=== PATIENT | female | born 1955 | race Caucasian/White ===

== ENCOUNTER 2025-05-10 09:24 | Outpatient (AMB) | payer MEDICARE, OTHER, SELFPAY ==
--- OUTSIDE RECORDS SUMMARY | 2025-01-09 06:00 | XMS_ITS ---
Author Organization [facility] [place] [place] Address [address] [place] [address] Care Team Providers Care Shower Screen Installer Name Role Phone Migration, Provider Unavailable Unavailable REASON FOR VISIT Follow-up Appt Encounters Encounter Location Date Provider Diagnosis [address] [address] 01/09/2025 Provider Migration Plan Of Treatment Next Appt Details Provider Name:Ritaher Garcia, 07/28/2025 10:15:00 AM, [address] [place] [address], [place] [address], [place], [address], [phone] Progress Notes * JEFFERSON CALDWELLRAHULOB:1955 (69 yo F)Acc No.[id number]:01/09/2025 Progress Notes Patient: SHEKHAR MCCABE Provider: Nato momin Migration :1955 A ge:69 Y S ex:Female Date:01/09/2025 Address: [address] [place], [place] Subjective: * Chief Complaints: * F ollow-up Appt * Ocular Surgical History: Objective: Vision Examination: * Electronic signature of Prov ider Migration on 05/10/2025 at 10:10 AM EDT Sign off status: Pending * Provider: Nato momin Migration Date: 0 01/09/2025 Generated for Merced bhatia/Roge/eTshanitasmitting on: 0 05/10/2025 10:10 AM EDT
--- OUTSIDE RECORDS SUMMARY | 2025-01-10 06:00 | XMS_ITS ---
Author Organization [facility] [place] Address [address] [place] [address] Care Team Providers Care Machine Chain Maker Name Role Phone Remy Mendiola Unavailable [phone] REASON FOR VISIT Follow-up Appt Encounters Encounter Location Date Provider Diagnosis [address] [place] [address] 01/10/2025 Remy Mendiola Plan Of Treatment Next Appt Details Provider Name:Rita Garcia, 07/28/2025 10:15:00 AM, [address] [facility], [address], [place], [address], [phone] Progress Notes * LAURA CALDWELLOB:1955 (69 yo F)Acc No.[id number]:01/10/2025 Progress Notes Patient: SHEKHAR MCCABE Provider: Naseem CABRERA :1955 A ge:69 Y S ex:Female Date:01/10/2025 [facility] Subjective: * Chief Complaints: * F ollow-up Appt * Ocular Surgical History: Objective: Vision Examination: * Electronic signature of Yosi Mendiola PA-C on 05/10/2025 at 10:10 AM EDT Sign off status: Pending * Provider: Naseem CABRERA Date: 01/10/2025 Generated for Printi ng/Faxing/eTransmitting on: 0 05/10/2025 10:10 AM EDT
--- OUTSIDE RECORDS SUMMARY | 2025-02-15 06:00 | XMS_ITS ---
Author Organization [facility] [place] Address [address] [place] [address] Care Team Providers Care Mill Operator Helper Name Role Phone Remy Mendiola Unavailable [phone] Allergies Allergen (clinical drug ingredient) Drug/Non Drug [...] a day Active Betamethasone 0.05% lotion Act ricki Aspirin 81 81 MG Tablet Delayed Release 1 tablet Orally Once a day Active SUMAtriptan Succinate 50 MG Tablet 1 tablet as needed, may take second dose at least 2 hours after first dose up to 4 tablets per day as needed Orally Once a day Active Encounters Encounter Location Date Provider Diagnosis [facility], [address] [place] [address] 02/15/2025 Remy Mendiola Assessments Encounter Date Diagnosis (ICD Code) Assessment Notes Treatment Notes Treatment Clinical Notes Section Notes 02/15/2025 Pt sees neurology next month. Labs-CBC, CMP/GFR/PSH/T4 /LIPID/URINE/M AG/CRP/B12/VIT D TRIAMVINOLONE CREAM Plan Of Treatment Next Appt Details Follow Up: 2 Weeks, Reason: Provider Name:Rita Garcia, 07/28/2025 10:15:00 AM, [address] [place] [address], Suite [facility], [place], [address], [phone] Progress Notes * LAURA CALDWELLOB:1955 (69 yo F)Acc No.[id number]:02/15/2025 Progress Notes Patient: SHEKHAR MCCABE Provider: Naseem CABRERA :1955 A ge:69 Y S ex:Female Date:02/15/2025 Address: [address] [facility] Subjective: * Chief Complaints: * F ollow-up [...] CABRERA Date: 0 02/15/2025 Generated for Merced bhatia/Roge/eTransmitting on: 0 05/10/2025 10:10 AM EDT
--- OUTSIDE RECORDS SUMMARY | 2025-03-01 10:30 | XMS_ITS ---
Author Organization [facility] [place] Address [address] [place] [address] Care Team Providers Care Social Work Therapist Name Role Phone Remy Mendiola Unavailable [phone] Allergies Allergen (clinical drug ingredient) Drug/Non Drug [...] Location Date Provider Diagnosis [facility] [place] [address] [facility] [address] [place] [address] 03/01/2025 Remy Mendiola Plan Of Treatment Next Appt Details Follow Up: 2 Months, Reason: Provider Name:Rita Garcia, 07/28/2025 10:15:00 AM, [address] [facility], [address], [place], [address], [phone] Progress Notes * JEFFERSON CALDWELLRAHULOB:1955 (69 yo F)Acc No.[id number]:03/01/2025 Progress Notes Patient: SHEKHAR MCCABE Provider: Naseem CABRERA :1955 A ge:69 Y S ex:Female Date:03/01/2025 Address:[address] [place], [place] [id number] Subjective: * Chief Complaints: * F ollow-up [...] 0 03/01/2025 Generated for Merced bhatia/Roge/Samir on: 0 05/10/2025 10:10 AM EDT
--- OUTSIDE RECORDS SUMMARY | 2025-04-27 06:45 | XMS_ITS ---
Author Organization [facility] [place] Address [address] [place] [address] Care Team Providers Care Manager Commercial [employer] Name Role Phone Rita Garcia Unavailable [phone] Allergies Allergen (clinical drug ingredient) Drug/Non Drug [...] 04/27/2025 Encounters Encounter Location Date Provider Diagnosis [facility], [place] [address] [place] [address] 04/27/2025 Rita Garcia Plan Of Treatment Next Appt Details Provider Name:Rita Garcia, 07/28/2025 10:15:00 AM, [address], [place], [address], [phone] History and Physical Notes * HPI (History [...] neurologist recommendations. Progress Notes * LAURA CALDWELLOB:1955 (69 yo F)Acc No.[id number]:04/27/2025 Progress Notes Patient: SHEKHAR MCCABE Provider: Stephania Garcia :1955 A ge:69 Y S ex:Female Date:04/27/2025 Address:[id number] Subjective: * Chief Complaints: * 2 month [...] * Electronic signature of Genaro Garcia on 05/10/2025 at 10:10 AM EDT Sign off status: Pending * Provider: Stephania Garcia Date: 0 04/27/2025 Generated for Merced bhatia/Roge/Samir on: 0 05/10/2025 10:10 AM EDT
--- NOTE | 2025-05-10 09:29 | A.OFFVIS_ITS ---
Intake Visit Reasons: 3 mnts f/u appt Allergies sulfur dioxide Allergy (Unknown, Verified 05/03/25 07:53) Unknown HPI Comments Details: The patient is a 69-year-old female presenting with chronic tension-type headaches and associated persistent lightheadedness. The patient described the lightheadedness as a constant sensation, sometimes fading into the background. The symptoms persisted after a stroke in her past medical history. During a recent exacerbation, she sought emergency care where a CT scan ruled out acute issues. After the emergency visit, she received meclizine without notable relief. An ENT specialist later ruled out an inner ear cause. Her management of anxiety through sertraline was discussed as a potential cause of the lightheadedness. No significant changes in her condition were linked to stress following her correction, although the medication regimen had varying impacts. [facility] Medical History (Updated 05/10/25 @ 09:31 by Brigitte Gibson MD) Cerebral microvascular disease Chronic tension headache Review of Systems Const Details: - Neurological: Reports persistent lightheadedness, denies dizziness. - Psychological: Reports anxiety stabilized, partially due to correction. - Medications: Reports taking sertraline. Physical Exam Neuro Other: Mental Status: Alert and oriented to person, place, and time. Normal attention. Normal spontan eous speech, fluency, and comprehension. No obvious issues with mood and memory. Affect is appropriate. Cranial Nerves: CN II: Visual andrew full to confrontation, visual acuity intact. CN III, IV, : Pupils equal, round, reactive to light and accommodation. Extraocular movements are normal. CN V: Facial sensation is normal. CN VII: Facial movements symmetrical. CN VIII: Hearing intact to bedside conversation is normal. CN IX, X: Palate elevates symmetrically. CN XI: Shoulder shrug and head turn symmetrical. CN XII: Tongue midline without atrophy or fasciculations. Extrapyramidal: Full facial expressions and blinking. No rigidity. Movements are appropriate with no tremor or abnormality. Speech: Normal; no dysarthria or tremor. Assessment & Plan Assessment & Plan (1) Chronic tension headache: Code(s): G44.229 - Chronic tension-type headache, not intractable Category: Medical Qualifiers: Intractability: not intractable Qualified Code(s): G44.229 - Chronic tension-type headache, not intractable Plan: During the consultation, I discussed with the patient her persistent lightheadedness, exploring the history and relationship of this symptom with her previous stroke, medication usage, and potential current treatment side effects. We reviewed the possible role of sertraline and agreed to reduce the dosage to assess the impact on her symptoms. It was explained that should her symptoms worsen, resuming the prior dosage would be advisable with further evaluation. (2) Cerebral microvascular disease: Comment: MRI brain WWO at [facility] in 2019: mild to mod MVD. Code(s): I67.89 - Other cerebrovascular disease Category: Medical Plan Impression: a: Chrnic tension type headache, not better b: Constant feeling of lightheadedness c: Cerebral microvascular disease Rec: a: Try decreasing sertraline dose to 25mg daily to see if that would help with lightheadedness feeling b: Baby aspirin daily Coding Level of Care Code Est Pt Level 4 (41584) Diagnoses Chronic tension-type headache, not intractable G44.229 Intractability: not intractable Cerebral microvascular disease I67.89
--- OUTSIDE RECORDS SUMMARY | 2025-05-10 10:10 | XMS_ITS | Encounter Summary ---
Author Organization [facility] Address [address] [place] [address] Care Team Providers Care Corporation Secretary Name Role Phone Remy Mendiola Primary Care Provider [phone] Encounter Details Date Type Department Care Team (Late st Contact Info) Description 07/11/2024 Lab Requisition [facility] - Main Lab [address] [facility] [place] [address] Luis Alberto Phillips MD [address] [facility] [address] [place], [place] [id number] Vitamin D deficiency, unspecified Social History Tobacco Use Types Packs/Day Years Used Date Smoking Tobacco: Never Assessed Comments Unknown Sex and Gender Information Value Date Recorded Sex Assigned at Not on file Legal Sex Female 2:14 PM EST Gender Identity Not on file Sexual Orientation Not on file documented as of this encounter Plan of Treatment Not on file documented as of this encounter Procedures Procedure Name Priority Date/Time Associated Diagnosis Comments VITAMIN D 25 HYDROXY Routine 07/11/2024 12:00 AM EST Vitamin D deficiency, unspecified documented in this encounter Results * Vitamin D 25 hydroxy (07/11/2024 12:00 AM EST) Vit D, 25-Hydroxy 34.1 30.0 - 80.0 ng/mL LAB CHEMISTRY METHOD 07/11/2024 6:59 PM EST [facility] Blood Venous blood specimen / Unknown 07/11/2024 07/11/2024 5:46 PM EST us Luis Alberto Phillips MD LAB BLOOD ORDERABLES Final Result [facility] [address] [place] [address], documented in this encounter Visit Diagnoses Diagnosis Vitamin D deficiency, unspecified documented in this encounter Care Teams Corporation Secretary Relationship Specialty Start Date End Date Remy Mendiola PA [address] [address] PCP - General Primary Care 02/15/25 documented as of this encounter
--- OUTSIDE RECORDS SUMMARY | 2025-05-10 10:10 | XMS_ITS ---
Author Name [facility] Organization Unknown Encounters Encounter Type Encounter Reason Primary Diagnosis Location Date Ambulatory [facility] 01/03/2025 Ambulatory [facility] 07/05/2024 Care Team Organization Name Specialty Phone Email Start Date End Da te [facility] 2024
--- OUTSIDE RECORDS SUMMARY | 2025-05-10 10:10 | XMS_ITS | Patient Health Record ---
Author Organization [facility] [place] Address [address] [place] [address] Care Team Providers Care Log Driver Name Role Phone Remy Mendiola Unavailable [phone] Migration, Provider Unavailable Unavailable Rita Garcia Unavailable [phone] Allergies Allergen (clinical drug ingredient) Drug/Non Drug Allergy documented on EMR Reaction Allergy Type Onset Date Status Substance with sulfonamide structure and antibacterial mechanism of action (substance) Sulfa Antibiotics Unknown Drug Allergy Active Reason For Referral No Information Medications Medication SIG (Take, Route, Frequency, Duration) [...] Den ies Do you drink alcohol? No Section Notes: Patient indicates no alcohol , tobacco or drug use. Vital Signs Heart Rate 62 /min 04/27/2025 Temperature 98.6 degrees Fahrenheit 03/01/2025 Height-cm 180.34 cm 04/27/2025 Oximetry 97 % 04/27/2025 Blood pressure diastolic 71 mm Hg 04/27/2025 Weight-kg 92.53 kg 04/27/2025 Height 71 in 04/27/2025 Blood pressure systolic 116 mm Hg 04/27/2025 Weight 204 lbs 04/27/2025 BMI 28.45 kg/m2 04/27/2025 Encounters Encounter Location Date Provider Diagnosis [facility] [place] [address] [place] [address] 05/17/2024 Provider Migration [facility] [place] [address] [place] [address] 06/13/2024 Provider Migration [facility] [place] [address] [place] [phone] 07/11/2024 Provider Migration [facility] [place] [address] [place] [address] 01/09/2025 Provider Migration [facility] [place] [address] [place] [phone] 01/10/2025 Remy Mendiola [facility] [place] [address] [place] [phone] 02/15/2025 Remy Mendiola [facility] [place] [address] [place] [address] 03/01/2025 Remy Mendiola [facility] [place] [address] [place] [phone] 04/27/2025 Rita Garcia Assessments Encounter Date Diagnosis (ICD Code) Assessment Notes Treatment Notes Treatment Clinical Notes Section Notes 02/15/2025 Pt sees neurology next month. Labs-CBC, CMP/GFR/PSH/T4 /LIPID/URINE/M AG/CRP/B12/VIT D TRIAMVINOLONE CREAM Plan Of Treatment Next Appt Details Provider Name:Rita Garcia, 07/28/2025 10:15:00 AM, [address] [facility], [address] [facility], [place], [address], [phone] Insurance Providers Payer Name Payer Address Payer Phone Subscriber Number Group Number Insured Name Patient Relationship to Insured Coverage Start Date Coverage End Date [employer] [address] [place] [phone] [id number] SHEKHAR CALDWELL Self - patient is the insured [facility] [address] [place] [address] [id number] SHEKHAR CALDWELL Self - patient is the insured Medical (General) History Surgical History Surgery Date(Month/Year) no surgeries
--- OUTSIDE RECORDS SUMMARY | 2025-05-10 10:10 | XMS_ITS | Clinical Summary ---
Author Organization [address] Address [address] [place] [address] Phone Care Team Providers Care Ships Equipment Engineer Name Role Phone Remy Mendiola Primary Care Provider [phone] Social History Tobacco Use Types Packs/Day Years Used Date Smoking Tobacco: Never Assessed Comments Unknown Sex and Gender Information Value Date Recorded Sex Assigned at Not on file Legal Sex Female 2:14 PM EST Gender Identity Not on file Sexual Orientation Not on file Plan of Treatment Health Maintenance Due Date Last Done Comments Breast Cancer Screening 1955 DTaP,Tdap,and Td Vaccines (1 - Tdap) 1974 Pneumococcal Vaccine: 50+ Years (1 of 1 - PCV) 2005 Zoster Vaccines (1 of 2) 2005 Colorectal Cancer Screening: Colonoscopy 07/31/2024 Falls Risk Assessment 07/31/2024 Hepatitis C Screening 07/31/2024 Medicare Annual Wellness Visit 07/31/2024 Osteoporosis Screening (Bone Density Screening) 07/31/2024 Social Influencers of Health Screening 07/31/2024 Depression Screening 09/07/2024 COVID-19 Vaccine ( season) 2024 06/12/2024, 09/15/2023, 08/21/2022, Additional history exists Influenza Vaccine (#1) 2025 , 08/13/2023, 08/07/2022, Additional history exists Cholesterol Screening (Lipid Panel) 02/15/2030 02/15/2025 RSV Immunization Adult Patients (1 - 1-dose 75+ series) 2030 HIB Vaccines Aged Out No longer eligi ble based on patient's age to complete this topic HPV Vaccines Aged Out No longer eligi ble based on patient's age to complete this topic Hepatitis A Vaccines Aged Out No long er eligible based on patient's age to complete this topic Hepatitis B Vaccines Aged Out No long er eligible based on patient's age to complete this topic IPV Vaccines Aged Out No longer eligi ble based on patient's age to complete this topic MMR Vaccines Aged Out No longer eligi ble based on patient's age to complete this topic Meningococcal ACWY Vaccine Aged Out N o longer eligible based on patient's age to complete this topic Meningococcal B Vaccine Aged Out No l onger eligible based on patient's age to complete this topic RSV Immunization Patients Under 20 months Aged Out No longer eligible based on patient's age to complete this topic Varicella Vaccines Aged Out No longer eligible based on patient's age to complete this topic Procedures Procedure Name Priority Date/Time Associated Diagnosis Comments CARLOS URINE CULTURE TUBE Routine 02/15/2025 11:02 AM EDT Screening, heart disease, ischemic Screening for diabetes mellitus Encounter for long-term (current) use of medications Screening for malnutrition URINALYSIS WITH REFLEX MICROSCOPIC AND CULTURE Routine 02/15/2025 11:02 AM EDT Screening, heart disease, ischemic Screening for diabetes mellitus Encounter for long-term (current) use of medications Screening for malnutrition URINALYSIS WITH REFLEX MICROSCOPIC AND CULTURE Routine 02/15/2025 11:02 AM EDT Screening, heart disease, ischemic Screening for diabetes mellitus Encounter for long-term (current) use of medications Screening for malnutrition CULTURE URINE Routine 02/15/2025 11:02 AM EDT Screening, heart disease, ischemic Screening for diabetes mellitus Encounter for long-term (current) use of medications Screening for malnutrition CBC WITH AUTO DIFFERENTIAL Routine 02/15/2025 10:49 AM EDT Screening, heart disease, ischemic Screening for diabetes mellitus Encounter for long-term (current) use of medications Screening for malnutrition VITAMIN D 25 HYDROXY Routine 02/15/2025 10:49 AM EDT Screening, heart disease, ischemic Screening for diabetes mellitus Encounter for long-term (current) use of medications Screening for malnutrition THYROID STIMULATING HORMONE Routine 02/15/2025 10:49 AM EDT Screening, heart disease, ischemic Screening for diabetes mellitus Encounter for long-term (current) use of medications Screening for malnutrition MAGNESIUM Routine 02/15/2025 10:49 AM EDT Screening, heart disease, ischemic Screening for diabetes mellitus Encounter for long-term (current) use of medications Screening for malnutrition THYROXINE FREE Routine 02/15/2025 10:49 AM EDT Screening, heart disease, ischemic Screening for diabetes mellitus Encounter for long-term (current) use of medications Screening for malnutrition C-REACTIVE PROTEIN Routine 02/15/2025 10 :49 AM EDT Screening, heart disease, ischemic Screening for diabetes mellitus Encounter for long-term (current) use of medications Screening for malnutrition CBC AND DIFFERENTIAL Routine 02/15/2025 10:49 AM EDT Screening, heart disease, ischemic Screening for diabetes mellitus Encounter for long-term (current) use of medications Screening for malnutrition VITAMIN B12 Routine 02/15/2025 10:49 AM EDT Screening, heart disease, ischemic Screening for diabetes mellitus Encounter for long-term (current) use of medications Screening for malnutrition LIPID PANEL WITH REFLEX TO DIRECT LDL Routine 02/15/2025 10:49 AM EDT Screening, heart disease, ischemic Screening for diabetes mellitus Encounter for long-term (current) use of medications Screening for malnutrition COMPREHENSIVE METABOLIC PANEL Routine 02/15/2025 10:49 AM EDT Screening, heart disease, ischemic Screening for diabetes mellitus Encounter for long-term (current) use of medications Screening for malnutrition from Last 3 Months Results * (ABNORMAL) Urinalysis with reflex microscopic and culture (02/15/2025 11:02 AM EDT) [facility] Specific Ona Urine 1.025 1.003 - 1.030 LAB URINALYSIS - AUTOMATED METHOD 02/15/2025 12:55 PM EDT [facility] pH, Urine 5.0 5.0 - 8.0 pH LAB URINALYSIS - AUTOMATED METHOD 02/15/2025 12:55 PM [facility] Leukocytes, Urine Trace(A) Negative LAB URINALYSIS - AUTOMATED METHOD 02/15/2025 12:55 PM [facility] Nitrite, Urine Negative Negative LAB URINALYSIS - AUTOMATED METHOD 02/15/2025 12:55 PM [facility] Protein, Urine Negative <=Trace mg/dL LAB URINALYSIS - AUTOMATED METHOD 02/15/2025 12:55 PM [facility] Glucose, Urine Negative Negative mg/dL LAB URINALYSIS - AUTOMATED METHOD 02/15/2025 12:55 PM [facility] Ketones, Urine Trace(A) Negative mg/dL LAB URINALYSIS - AUTOMATED METHOD 02/15/2025 12:55 PM [facility] Urobilinogen, Urine 0.2 0.2 - 1.0 mg/dL LAB URINALYSIS - AUTOMATED METHOD 02/15/2025 12:55 PM [facility] Bilirubin, Urine Negative Negative LAB URINALYSIS - AUTOMATED METHOD 02/15/2025 12:55 PM [facility] Blood, Urine Negative Negative LAB URINALYSIS - AUTOMATED METHOD 02/15/2025 12:55 PM [facility] RBC, Urine 5.0(H) 0 - 4 /HPF LAB URINALYSIS - AUTOMATED METHOD 02/15/2025 12:55 PM [facility] WBC, Urine 3.2 0 - 4 /HPF LAB URINALYSIS - AUTOMATED METHOD 02/15/2025 12:55 PM [facility] Squamous Epithelial, Urine >100(H) 0 - 60 /LPF LAB URINALYSIS - AUTOMATED METHOD 02/15/2025 12:55 PM [facility] Bacteria, Urine Negative Negative /HPF LAB URINALYSIS - AUTOMATED METHOD 02/15/2025 12:55 PM EDT [facility] Hyaline Casts, Urine 2.0 0 - 3 /LPF LAB URINALYSIS - AUTOMATED METHOD 02/15/2025 12:55 PM EDT [facility] Urine Urine specimen obtained by clean catch procedure / Unknown Non-blood Collection / Unknown 02/15/2025 11:02 AM EDT 02/15/2025 12:13 PM EDT Remy CABRERA LAB URINE ORDERABLES Final Res ult Performing Organization Address [facility]/ZIP Co de Phone Number [facility] [address] [place] [address], [place] [phone] * Carlos urine culture tube (02/15/2025 11:02 AM EDT) Extra Tube Hold for add-ons. 02/15/2025 2:01 PM EDT [facility] Comment:Auto resulted. Urine Urine specimen obtained by clean catch procedure / Unknown Non-blood Collection / Unknown 02/15/2025 11:02 AM EDT 02/15/2025 12:13 PM EDT Remy CABRERA LAB URINE ORDERABLES Final Res ult Performing Organization Address City/[facility]/ZIP Co de Phone Number [facility] [address] [place] [address], [place] [phone] * Culture urine (02/15/2025 11:02 AM EDT) Culture, Urine 10,000-49,000 CFU/mL Mixed urogenital negrito, no uropathogens present. Suggest repeat specimen if clinically indicated. 02/16/2025 10:26 AM EDT [facility] Urine Urine specimen obtained by clean catch procedure / Unknown Non-blood Collection / Unknown 02/15/2025 11:02 AM EDT 02/15/2025 12:55 PM EDT Remy CABRERA LAB MICROBIOLOGY - GENERAL ORD ERABLES Final Result [facility] [address] [place] [address], [place] [phone] * (ABNORMAL) Lipid panel with reflex to direct LDL (02/15/2025 10:49 AM EDT) Cholesterol 204(H) 0 - 200 mg/dL LAB CHEMISTRY METHOD 02/15/2025 1:35 PM EDT [facility] Triglycerides 138 0 - 150 mg/dL LAB CHEMISTRY METHOD 02/15/2025 1:35 PM EDT [facility] HDL 66 >=40 mg/dL LAB CHEMISTRY METHOD 02/15/2025 1:35 PM EDT [facility] LDL Calculated 110(H) 0 - 100 mg/dL LAB CHEMISTRY METHOD 02/15/2025 1:35 PM EDT [facility] VLDL Cholesterol Gareth 27.6 mg/dL LAB CHEMISTRY METHOD 02/15/2025 1:35 PM EDT [facility] Non HDL Chol. (LDL+VLDL) 138 <145 mg/dL LAB CHEMISTRY METHOD 02/15/2025 1:35 PM EDT [facility] Chol/HDL Ratio 3.1 0.0 - 4.4 LAB CHEMISTRY METHOD 02/15/2025 1:35 PM EDT [facility] Blood Venous blood specimen / Unknown Venipuncture / Unknown 02/15/2025 10:49 AM EDT 02/15/2025 12:19 PM EDT Remy CABRERA LAB BLOOD ORDERABLES Final Res ult [facility] [address] [place] [address], [place] [phone] * (ABNORMAL) CBC auto differential (02/15/2025 10:49 AM EDT) [facility] WBC 7.3 4.8 - 10.8 K/mcL LAB HEMETOLOGY METHOD 02/15/2025 12:48 PM EDT [facility] RBC 4.70 3.80 - 4.80 M/mcL LAB HEMETOLOGY METHOD 02/15/2025 12:48 PM EDT [facility] Hemoglobin 13.3 11.5 - 16.0 g/dL LAB HEMETOLOGY METHOD 02/15/2025 12:48 PM EDT [facility] Hematocrit 41.7 35.0 - 47.0 % LAB HEMETOLOGY METHOD 02/15/2025 12:48 [facility] MCV 88.7 79.0 - 98.0 FL LAB HEMETOLOGY METHOD 02/15/2025 12:48 PM [facility] MCH 28.3 27.0 - 32.0 pcg LAB HEMETOLOGY METHOD 02/15/2025 12:48 PM [facility] MCHC 31.9(L) 32.0 - 37.0 g/dL LAB HEMETOLOGY METHOD 02/15/2025 12:48 PM [facility] RDW 13.0 11.0 - 15.0 % LAB HEMETOLOGY METHOD 02/15/2025 12:48 PM EDT [facility] Platelets 265 130 - 400 K/mcL LAB HEMETOLOGY METHOD 02/15/2025 12:48 PM EDT [facility] MPV 9.8 7.0 - 11.0 FL LAB HEMETOLOGY METHOD 02/15/2025 12:48 PM EDT [facility] NRBC 0.0 <1.0 % LAB HEMETOLOGY METHOD 02/15/2025 12:48 PM [facility] NRBC Absolute 0.00 <0.10 K/mcL LAB HEMETOLOGY METHOD 02/15/2025 12:48 PM [facility] Neutrophils Relative 70.4 % LAB HEMETOLOGY METHOD 02/15/2025 12:48 PM [facility] Lymphocytes Relative 14.7 % LAB HEMETOLOGY METHOD 02/15/2025 12:48 PM [facility] Monocytes Relative 9.3 % LAB HEMETOLOGY METHOD 02/15/2025 12:48 PM [facility] Eosinophils Relative 4.0 % LAB HEMETOLOGY METHOD 02/15/2025 12:48 PM [facility] Basophils Relative 1.2 % LAB HEMETOLOGY METHOD 02/15/2025 12:48 PM [facility] Immature Granulocytes Relative 0.4 % LAB HEMETOLOGY METHOD 02/15/2025 12:48 PM [facility] Neutrophils Absolute 5.16 1.50 - 7.00 K/mcL LAB HEMETOLOGY METHOD 02/15/2025 12:48 PM [facility] Lymphocytes Absolute 1.08 1.00 - 5.00 K/mcL LAB HEMETOLOGY METHOD 02/15/2025 12:48 PM [facility] Monocytes Absolute 0.68 0.20 - 1.00 K/mcL LAB HEMETOLOGY METHOD 02/15/2025 12:48 PM [facility] Eosinophils Absolute 0.29 0.00 - 0.50 K/mcL LAB HEMETOLOGY METHOD 02/15/2025 12:48 PM [facility] Basophils Absolute 0.09 0.00 - 0.20 K/mcL LAB HEMETOLOGY METHOD 02/15/2025 12:48 PM [facility] Immature Granulocytes Absolute 0.03 0.00 - 0.03 K/mcL LAB HEMETOLOGY METHOD 02/15/2025 12:48 PM [facility] Blood Venous blood specimen / Unknown Venipuncture / Unknown 02/15/2025 10:49 AM EDT 02/15/2025 12:20 PM EDT Remy CABRERA LAB BLOOD ORDERABLES Final Res ult Performing Organization Address [facility]/ZIP Co de Phone Number [facility] [address] [place] [address], [place] [phone] * Vitamin D 25 hydroxy (02/15/2025 10:49 AM EDT) Vit D, 25-Hydroxy 35.5 30.0 - 80.0 ng/mL LAB CHEMISTRY METHOD 02/15/2025 2:46 PM EDT [facility] Blood Venous blood specimen / Unknown Venipuncture / Unknown 02/15/2025 10:49 AM EDT 02/15/2025 12:19 PM EDT Remy CABRERA LAB BLOOD ORDERABLES Final Res ult Performing Organization Address [facility] de Phone Number [facility] [address] [place], [place] [address], [place] [phone] * C-reactive protein (02/15/2025 10:49 AM EDT) [facility] C-Reactive Protein <0.29 <=0.50 mg/dL LAB CHEMISTRY METHOD 02/15/2025 1:56 PM EDT [facility] Blood Venous blood specimen / Unknown Venipuncture / Unknown 02/15/2025 10:49 AM EDT 02/15/2025 12:19 PM EDT Remy CABRERA LAB BLOOD ORDERABLES Final Res ult Performing Organization Address City/[facility]/ZIP Co de Phone Number [facility] [address] [place] [address], [place] [phone] * Thyroid stimulating hormone (02/15/2025 10:49 AM EDT) TSH 2.96 0.40 - 4.00 mcIU/mL LAB CHEMISTRY METHOD 02/15/2025 2:46 PM EDT [facility] Blood Venous blood specimen / Unknown Venipuncture / Unknown 02/15/2025 10:49 AM EDT 02/15/2025 12:19 PM EDT Remy CABRERA LAB BLOOD ORDERABLES Final Res ult [facility] [address] [place] [address], [place] [phone] * Thyroxine free (02/15/2025 10:49 AM EDT) Free T4 0.99 0.70 - 1.80 ng/dL LAB CHEMISTRY METHOD 02/15/2025 2:46 PM EDT [facility] Blood Venous blood specimen / Unknown Venipuncture / Unknown 02/15/2025 10:49 AM EDT 02/15/2025 12:19 PM EDT us Remy CABRERA LAB BLOOD ORDERABLES Final Res ult [facility] [address] [place] [address], [place] [phone] * Magnesium (02/15/2025 10:49 AM EDT) Magnesium 2.3 1.9 - 2.6 mg/dL LAB CHEMISTRY METHOD 02/15/2025 1:35 PM EDT [facility] Blood Venous blood specimen / Unknown Venipuncture / Unknown 02/15/2025 10:49 AM EDT 02/15/2025 12:19 PM EDT Remy CABRERA LAB BLOOD ORDERABLES Final Res ult Performing Organization Address City/[facility]/ZIP Co de Phone Number [facility] [address] [place] [address], [place] [phone] * Vitamin B12 (02/15/2025 10:49 AM EDT) [facility] Vitamin B-12 348 250 - 900 pcg/mL LAB CHEMISTRY METHOD 02/15/2025 1:56 PM EDT [facility] Blood Venous blood specimen / Unknown Venipuncture / Unknown 02/15/2025 10:49 AM EDT 02/15/2025 12:19 PM EDT Remy CABRERA LAB BLOOD ORDERABLES Final Res ult Performing Organization Address [facility]/ZIP Co de Phone Number [facility] [address] [place] [address], [place] [phone] * Comprehensive metabolic panel (02/15/2025 10:49 AM EDT) [facility] Sodium 141 133 - 145 mmol/L LAB CHEMISTRY METHOD 02/15/2025 1:35 PM T [facility] Potassium 4.1 3.5 - 5.5 mmol/L LAB CHEMISTRY METHOD 02/15/2025 1:35 PM EDT [facility] Chloride 106 96 - 110 mmol/L LAB CHEMISTRY METHOD 02/15/2025 1:35 PM EDT [facility] CO2 29 21 - 32 mmol/L LAB CHEMISTRY METHOD 02/15/2025 1:35 PM EDT [facility] Anion Gap 6 3 - 11 LAB CHEMISTRY METHOD 02/15/2025 1:35 PM [facility] Glucose 79 70 - 100 mg/dL LAB CHEMISTRY METHOD 02/15/2025 1:35 PM [facility] BUN 20 5 - 25 mg/dL LAB CHEMISTRY METHOD 02/15/2025 1:35 PM [facility] Creatinine 0.55 0.50 - 1.10 mg/dL LAB CHEMISTRY METHOD 02/15/2025 1:35 PM [facility] eGFR 99 >=60 mL/min/1. 73m2 LAB CHEMISTRY METHOD 02/15/2025 1:35 PM [facility] Comment:Calculation based on the Chronic Kidney Disease Epidemiology Collaboration (CKD-EPI) equation refit without adjustment for race. BUN/Creatinine Ratio 36.4 LAB CHEMISTRY METHOD 02/15/2025 1:35 PM [facility] Calcium 8.7 8.5 - 10.5 mg/dL LAB CHEMISTRY METHOD 02/15/2025 1:35 PM [facility] AST (SGOT) 17 10 - 42 unit/L LAB CHEMISTRY METHOD 02/15/2025 1:35 PM [facility] ALT (SGPT) 17 10 - 60 unit/L LAB CHEMISTRY METHOD 02/15/2025 1:35 PM [facility] Alkaline Phosphatase 72 42 - 121 unit/L LAB CHEMISTRY METHOD 02/15/2025 1:35 PM [facility] Total Protein 6.4 6.0 - 8.0 g/dL LAB CHEMISTRY METHOD 02/15/2025 1:35 PM [facility] Albumin 3.3 3.2 - 5.0 g/dL LAB CHEMISTRY METHOD 02/15/2025 1:35 PM [facility] Total Bilirubin 0.4 0.0 - 1.4 mg/dL LAB CHEMISTRY METHOD 02/15/2025 1:35 PM [facility] Blood Venous blood specimen / Unknown Venipuncture / Unknown 02/15/2025 10:49 AM EDT 02/15/2025 12:19 PM EDT us Remy CABRERA LAB BLOOD ORDERABLES Final Res ult [facility] [address] [place] [address], from Last 3 Months Insurance MEDICARE [facility] Care Teams Ships Equipment Engineer Relationship Specialty Start Date End Date Remy Mendiola PA [address] [place] [id number] PCP - General Primary Care 02/15/25
== END 2025-05-10 09:40 | disposition home or self-care (01) ==
LOC: HO.HSM 09:24
PROVIDERS: PCP Internal Medicine; Visit Provider Psychiatry & Neurology Neurology
DX: G44.229 Chronic tension-type headache, not intractable (principal); I67.89 Other cerebrovascular disease
CPT/HCPCS: 99214

== ENCOUNTER → 2025-05-10 09:24 | Outpatient (BNVA) | payer MEDICARE, OTHER, SELFPAY | PROVIDERS: PCP Internal Medicine; Visit Provider Psychiatry & Neurology Neurology | DX: G44.229 Chronic tension-type headache, not intractable (principal); I67.89 Other cerebrovascular disease | CPT/HCPCS: 99212 ==

== ENCOUNTER 2025-07-18 11:14 | Outpatient (AMB) | payer MEDICARE, OTHER, SELFPAY ==
--- OUTSIDE RECORDS SUMMARY | 2024-05-17 05:00 | XMS_ITS ---
Author Organization [facility] [place] [facility] [place] Address [address] [place] [address] Care Team Providers Care Backup Operator Name Role Phone Migration, Provider Unavailable Unavailable REASON FOR VISIT CPX Encounters Encounter Location Date Provider Diagnosis [facility], [address] [address] 05/17/2024 Provider Migration Plan Of Treatment Next Appt Details Provider Name:Rita Garcia, 07/28/2025 10:15:00 AM, [address] [place] [address], [place] [address], [place], [address], [phone] Progress Notes * JEFFERSON CALDWELLRAHULOB:1955 (70 yo F)Acc No.[id number]:05/17/2024 Progress Notes Patient: SHEKHAR MCCABE Provider: Nato momin Migration :1955 A ge:68 Y S ex:Female Date:05/17/2024 Address: [address] [facility] Subjective: * Chief Complaints: * C PX * Ocular Surgical History: Objective: Vision Examination: * Electronic signature of Prov ider Migration on 07/18/2025 at 01:28 PM EST Sign off status: Pending * Provider: Nato momin Migration Date: 0 05/17/2024 Generated for Merced bhatia/Roge/Jessikaitting on: 09/17/2024 01:28 PM EST
--- OUTSIDE RECORDS SUMMARY | 2024-06-13 06:00 | XMS_ITS ---
Author Organization [facility] [place] Address [address] [place] [address] Care Team Providers Care Cytogenetic Technician Name Role Phone Migration, Provider Unavailable Unavailable REASON FOR VISIT CPX Encounters Encounter Location Date Provider Diagnosis [facility], [address] [address] 06/13/2024 Provider Migration Plan Of Treatment Next Appt Details Provider Name:Rita Garcia, 07/28/2025 10:15:00 AM, [address] [place] [address], [place] [address], [place], [address], [phone] Progress Notes * JEFFERSON CALDWELLRAHULOB:1955 (70 yo F)Acc No.[id number]:06/13/2024 Progress Notes Patient: SHEKHAR MCCABE Provider: Nato momin Migration :1955 A ge:69 Y S ex:Female Date:06/13/2024 Address: [address] [facility] Subjective: * Chief Complaints: * C PX * Ocular Surgical History: Objective: Vision Examination: * Electronic signature of Prov ider Migration on 07/18/2025 at 01:28 PM EST Sign off status: Pending * Provider: Nato momin Migration Date: Generated for Merced bhatia/Roge/Jessikaitting on: 09/17/2024 01:28 PM EST
--- OUTSIDE RECORDS SUMMARY | 2024-07-11 04:00 | XMS_ITS ---
Author Organization [facility] [place] Address [address] [place] [address] Care Team Providers Care Post Form Remover Name Role Phone Migration, Provider Unavailable Unavailable REASON FOR VISIT CPX Encounters Encounter Location Date Provider Diagnosis [facility], [address] [address] 07/11/2024 Provider Migration Plan Of Treatment Next Appt Details Provider Name:Rita Garcia, 07/28/2025 10:15:00 AM, [address] [place] [address], [place] [address], [place], [address], [phone] Progress Notes * JEFFERSON CALDWELLRAHULOB:1955 (70 yo F)Acc No.[id number]:07/11/2024 Progress Notes Patient: SHEKHAR MCCABE Provider: Nato momin Migration :1955 A ge:69 Y S ex:Female Date:07/11/2024 Address: [address] [facility] Subjective: * Chief Complaints: * C PX * Ocular Surgical History: Objective: Vision Examination: * Electronic signature of Prov ider Migration on 07/18/2025 at 01:28 PM EST Sign off status: Pending * Provider: Nato momin Migration Date: 09/10/2023 Generated for Merced bhatia/Roge/Jessikaitting on: 09/17/2024 01:28 PM EST
--- OUTSIDE RECORDS SUMMARY | 2025-01-09 05:00 | XMS_ITS ---
Author Organization [facility] [place] Address [address] [place] [address] Care Team Providers Care Heading And Priming Tool Setter Name Role Phone Migration, Provider Unavailable Unavailable REASON FOR VISIT Follow-up Appt Encounters Encounter Location Date Provider Diagnosis [address] [address] 01/09/2025 Provider Migration Plan Of Treatment Next Appt Details Provider Name:Rita Radha, 07/28/2025 10:15:00 AM, [address] [place] [address], Suite [facility], [place], [address], [phone] Progress Notes * JEFFERSON CALDWELLRAHULOB:1955 (70 yo F)Acc No.[id number]:01/09/2025 Progress Notes Patient: SHEKHAR MCCABE Provider: Nato momin Migration :1955 A ge:69 Y S ex:Female Date:01/09/2025 Address: [address] [place] Subjective: * Chief Complaints: * F ollow-up Appt * Ocular Surgical History: Objective: Vision Examination: * Electronic signature of Prov ider Migration on 07/18/2025 at 01:28 PM EST Sign off status: Pending * Provider: Nato momin Migration Date: 0 01/09/2025 Generated for Merced bhatia/oRge/Samir on: 1 09/17/2024 01:28 PM EST
--- OUTSIDE RECORDS SUMMARY | 2025-01-10 05:00 | XMS_ITS ---
Author Organization [facility] [place] [facility] [place] Address [address] [place] [address] Care Team Providers Care Dental Office Receptionist Name Role Phone Remy Mendiola Unavailable [phone] REASON FOR VISIT Follow-up Appt Encounters Encounter Location Date Provider Diagnosis [address] [place] [address] 01/10/2025 Remy Mendiola Plan Of Treatment Next Appt Details Provider Name:Rita Garcia, 07/28/2025 10:15:00 AM, [address] [facility], [address], [place], [address], [phone] Progress Notes * LAURA CALDWELLOB:1955 (70 yo F)Acc No.[id number]:01/10/2025 Progress Notes Patient: SHEKHAR MCCABE Provider: Naseem CABRERA :1955 A ge:69 Y S ex:Female Date:01/10/2025 [address] [address] [facility] Subjective: * Chief Complaints: * F ollow-up Appt * Ocular Surgical History: Objective: Vision Examination: * Electronic signature of Yosi Mendiola PA-C on 07/18/2025 at 01:27 PM EST Sign off status: Pending * Provider: Naseem CABRERA Date: 0 01/10/2025 Generated for Printi ng/Faxing/eTransmitting on: 1 09/17/2024 01:27 PM EST
--- OUTSIDE RECORDS SUMMARY | 2025-02-15 05:00 | XMS_ITS ---
Author Organization [facility] [place] Address [address] [place] [address] Care Team Providers Care Pharmacy Sales Assistant Name Role Phone Remy Mendiola Unavailable [phone] Allergies Allergen (clinical drug ingredient) Drug/Non Drug Allergy documented on EMR Reaction Allergy Type Onset Date Status Substance with sulfonamide structure and antibacterial mechanism of action (substance) Sulfa Antibiotics Unknown Drug Allergy Active REASON FOR VISIT Follow-up Appt-regarding headaches., poison mady-both arms; taking cortizone cream, lightheadedness,right earache-seen ENT Medications Medication SIG (Take, Route, Frequency, Duration) Notes Start Date End Date Status Sertraline HCl 50 MG Tablet 1 tablet Orally Once a day Active Betamethasone 0.05% lotion Act rciki Aspirin 81 81 MG Tablet Delayed Release 1 tablet Orally Once a day Active SUMAtriptan Succinate 50 MG Tablet 1 tablet as needed, may take second dose at least 2 hours after first dose up to 4 tablets per day as needed Orally Once a day Active Encounters Encounter Location Date Provider Diagnosis [facility], [address] [place] [address] 02/15/2025 Remy Mendiola Assessments Encounter Date Diagnosis (ICD Code) Assessment Notes Treatment Notes Treatment Clinical Notes Section Notes 02/15/2025 Pt sees neurology next month. Labs-CBC, CMP/GFR/PSH/T4 /LIPID/URINE/M AG/CRP/B12/VIT D TRIAMVINOLONE CREAM Plan Of Treatment Next Appt Details Follow Up: 2 Weeks, Reason: Provider Name:Rita Garcia, 07/28/2025 10:15:00 AM, [address] [place] [address], Suite [facility], [place], [address], [phone] Progress Notes * LAURA CALDWELLOB:1955 (70 yo F)Acc No.[id number]:02/15/2025 Progress Notes Patient: SHEKHAR MCCABE Provider: Naseem CABRERA :1955 A ge:69 Y S ex:Female Date:02/15/2025 Address: [address] [facility] Subjective: * Chief Complaints: * F ollow-up Appt-regarding headaches. Poison mady-both arms; taking cortizone creamLightheadednessright earache-seen ENT * Ocular Surgical History: * Medications: T akingSertraline HCl 50 MG Tablet 1 tablet Orally Once a day Betamethasone , Notes to Pharmacist: 0.05% lotionAspirin 81 81 MG Tablet Delayed Release 1 tablet Orally Once a day SUMAtriptan Succinate 50 MG Tablet 1 tablet as needed, may take second dose at least 2 hours after first dose up to 4 tablets per day as needed Orally Once a day Taking Sertraline HCl 50 MG Tablet 1 tablet Orally Once a day Taking Betamethasone , Notes to Pharmacist: 0.05% lotionTaking Aspirin 81 81 MG Tablet Delayed Release 1 tablet Orally Once a day Taking SUMAtriptan Succinate 50 MG Tablet 1 tablet as needed, may take second dose at least 2 hours after first dose up to 4 tablets per day as needed Orally Once a day * Allergies: S ulfa Antibiotics Objective: Vision Examination: Assessment: * Assessment: Pt sees neurology next month . Labs-CBC, CMP/GFR/PSH/T4/LIPID/URINE/MAG/CRP/B12/VIT D TRIAMVINOLONE CREAM Plan: * Follow Up: 2 Weeks * Electronic signature of Yosi Mendiola PA-C on 07/18/2025 at 01:27 PM EST Sign off status: Pending * Provider: Naseem CABRERA Date: 0 02/15/2025 Generated for Merced bhatia/Roge/eTransmroldan on: 1 09/17/2024 01:27 PM EST
--- OUTSIDE RECORDS SUMMARY | 2025-03-01 09:30 | XMS_ITS ---
Author Organization [facility] [place] [place] Address [address] [place] [address] Care Team Providers Care Territory Sales Consultant Name Role Phone Remy Mendiola Unavailable [phone] Allergies Allergen (clinical drug ingredient) Drug/Non Drug Allergy documented on EMR Reaction Allergy Type Onset Date Status Substance with sulfonamide structure and antibacterial mechanism of action (substance) Sulfa Antibiotics Unknown Drug Allergy Active REASON FOR VISIT Follow-up Appt, F/u H/A Medications Medication SIG (Take, Route, Frequency, Duration) Notes Start Date End Date Status SUMAtriptan Succinate 50 MG Tablet 1 tablet as needed, may take second dose at least 2 hours after first dose up to 4 tablets per day as needed Orally Once a day Not-Taking Betamethasone 0.05% lotion Not -Taking Aspirin 81 81 MG Tablet Delayed Release 1 tablet Orally Once a day Active Sertraline HCl 50 MG Tablet 1 tablet Orally Once a day Active Social History Tobacco Use: Social History Observation Description Date Details (start date - stop date) Current Smoker NA - NA Social History Drug/Alcohol: Social Info Question Answer Notes Caffeine Intake: none Tobacco Use: Social Info Question Answer Notes Tobacco Control (Standard) Tobacco use: Current smoker Additional Details Category Social Info Options Details Drug/Alcohol: Do you smoke marijuana? Den ies Do you drink alcohol? No Vital Signs Temperature 98.6 degrees Fahrenheit 03/01/20 25 Blood pressure systolic 141 mm Hg 03/01/20 25 Blood pressure diastolic 171 mm Hg 025 Heart Rate 61 /min 03/01/2025 Height 71 in 03/01/2025 Weight 206 lbs 03/01/2025 BMI 28.73 kg/m2 03/01/2025 Oximetry 95 % 03/01/2025 Height-cm 180.34 cm 03/01/2025 Weight-kg 93.44 kg 03/01/2025 Encounters Encounter Location Date Provider Diagnosis [facility] [place] [address] [facility] [address] [place] [address] 03/01/2025 Remy Mendiola Plan Of Treatment Next Appt Details Follow Up: 2 Months, Reason: Provider Name:Rita Garcia, 07/28/2025 10:15:00 AM, [address] [facility], [address], [place], [address], [phone] Progress Notes * JEFFERSON CALDWELLRAHULOB:1955 (70 yo F)Acc No.[id number]:03/01/2025 Progress Notes Patient: SHEKHAR MCCABE Provider: Naseem CABRERA :1955 A ge:69 Y S ex:Female Date:03/01/2025 Address:[address] [place], [place] [id number] Subjective: * Chief Complaints: * F ollow-up ApptF/u H/A * Surgical History: Denies Past Surgical History. * Hospitalization/Major Diagno stic Procedure: Denies Past Hospitalization. * Social History: T obacco Use: T obacco Control (Standard) T obacco use: C urrent smoker. D rug/Alcohol: C affeine I ntake: n one. D o you smoke marijuana?: Denies. Do you drink alcohol?: No. * Medications: T akingSertraline HCl 50 MG Tablet 1 tablet Orally Once a day Aspirin 81 81 MG Tablet Delayed Release 1 tablet Orally Once a day Taking Sertraline HCl 50 MG Tablet 1 tablet Orally Once a day Taking Aspirin 81 81 MG Tablet Delayed Release 1 tablet Orally Once a day Not-TakingBetamethasone , Notes to Pharmacist: 0.05% lotionSUMAtriptan Succinate 50 MG Tablet 1 tablet as needed, may take second dose at least 2 hours after first dose up to 4 tablets per day as needed Orally Once a day Medication List reviewed and reconciled with the patientNot-Taking Betamethasone , Notes to Pharmacist: 0.05% lotionNot-Taking SUMAtriptan Succinate 50 MG Tablet 1 tablet as needed, may take second dose at least 2 hours after first dose up to 4 tablets per day as needed Orally Once a day Medication List reviewed and reconciled with the patient * Allergies: S ulfa AntibioticsyesAllergies Verified. Objective: * Vitals: B P:141/171mm Hg, HR:61/min, Temp:98.6F, Oxygen sat %:95%, Ht: 71 in, Wt:206lbs, BMI:28.73Index, Wt-k.44 kg, Ht-cm: 180.34 cm, Body Surface Area: 2.16. Plan: * Follow Up: 2 Months * Electronic signature of Yosi Mendiola PA-C on 07/18/2025 at 01:28 PM EST Sign off status: Pending * Provider: Naseem CABRERA Date: 0 03/01/2025 Generated for Merced bhatia/Roge/Samir on: 1 09/17/2024 01:28 PM EST
--- OUTSIDE RECORDS SUMMARY | 2025-04-27 05:45 | XMS_ITS ---
Author Organization [facility] [place] Address [address] [place] [address] Care Team Providers Care Farm Management Professor Name Role Phone Rita Garcia Unavailable [phone] Allergies Allergen (clinical drug ingredient) Drug/Non Drug Allergy documented on EMR Reaction Allergy Type Onset Date Status Substance with sulfonamide structure and antibacterial mechanism of action (substance) Sulfa Antibiotics Unknown Drug Allergy Active REASON FOR VISIT 2 month f/u, Patient indicates she has had headaches and neurologist indicated migranes but medication prescribed did not work. Medications Medication SIG (Take, Route, Frequency, Duration) Notes Start Date End Date Status Calcium 600 MG Tablet 1 tablet with meal s Orally Twice a day Active Sertraline HCl 50 MG Tablet 1 tablet Orally Once a day A ctive Aspirin 81 81 MG Tablet Delayed Release 1 tablet Orally Once a day Active Social History Tobacco Use: Social History Observation Description Date Details (start date - stop date) Current Smoker NA - NA Social History Tobacco Use: Social Info Question Answer Notes Tobacco Control (Standard) Tobacco use: Current smoker Section Notes: Patient indicates no alcohol , tobacco or drug use. Vital Signs Blood pressure systolic 116 mm Hg 04/27/20 25 Blood pressure diastolic 71 mm Hg 025 Heart Rate 62 /min 04/27/2025 Height 71 in 04/27/2025 Weight 204 lbs 04/27/2025 BMI 28.45 kg/m2 04/27/2025 Oximetry 97 % 04/27/2025 Height-cm 180.34 cm 04/27/2025 Weight-kg 92.53 kg 04/27/2025 Encounters Encounter Location Date Provider Diagnosis [facility] [place] [address] [facility] [address] [place] [address] 04/27/2025 Rita Garcia Plan Of Treatment Next Appt Details Provider Name:Rita Garcia, 07/28/2025 10:15:00 AM, [address], [address], [place], [address], [phone] History and Physical Notes * HPI (History of Present Illness) Category Sub-Category Detail Notes Category Not es General Subjective: - Pt reports pressure headaches since December, worsened with lightheadedness. - Hx of minor stroke, years ago, asymptomatic until current headaches. - Neurologist prescribed migraine medication, found ineffective. - ENT consultation was dismissive. - Reports dizziness lasting around 2 months, now mild and sporadic. - Dizziness occurs both when sitting and standing. - Consumes roughly one bottle of water daily, advised to increase. - Uses sumatriptan; partial relief noted. - Past Hx of poison mady, resolved. - No current stress reported, on sertraline for past stress headaches. - No known allergies reported. - No significant family hx of related conditions discussed. Objective: - Labs from February indicate normal electrolytes, kidneys, liver. - LDL slightly elevated at 110 mg/dL, HDL good, glucose normal. - No current abnormal physical exam findings reported. Assessment: - Likely chronic tension-type headache. - History of minor stroke (previously asymptomatic). Plan: - Increase water intake to prevent dehydration-related dizziness. - Continue current medications, plan to discuss headache management with Dr. Whitney on next visit on May 10. - Monitor cholesterol levels and adjust diet as needed, re-evaluate if LDL increases. - Consider routine follow-up pending neurologist recommendations. Progress Notes * LAURA CALDWELLOB:1955 (70 yo F)Acc No.[id number]:04/27/2025 Progress Notes Patient: SHEKHAR MCCABE Provider: Stephania Garcia :1955 A ge:69 Y S ex:Female Date:04/27/2025 Address[address] [id number] Subjective: * Chief Complaints: * 2 month f/uPatient indicates she has had headaches and neurologist indicated migranes but medication prescribed did not work. * HPI: G eneral: Subjective: - Pt reports pressure headaches since December, worsened with lightheadedness. - Hx of minor stroke, years ago, asymptomatic until current headaches. - Neurologist prescribed migraine medication, found ineffective. - ENT consultation was dismissive. - Reports dizziness lasting around 2 months, now mild and sporadic. - Dizziness occurs both when sitting and standing. - Consumes roughly one bottle of water daily, advised to increase. - Uses sumatriptan; partial relief noted. - Past Hx of poison mady, resolved. - No current stress reported, on sertraline for past stress headaches. - No known allergies reported. - No significant family hx of related conditions discussed. Objective: - Labs from February indicate normal electrolytes, kidneys, liver. - LDL slightly elevated at 110 mg/dL, HDL good, glucose normal. - No current abnormal physical exam findings reported. Assessment: - Likely chronic tension-type headache. - History of minor stroke (previously asymptomatic). Plan: - Increase water intake to prevent dehydration-related dizziness. - Continue current medications, plan to discuss headache management with Dr. Whitney on next visit on May 10. - Monitor cholesterol levels and adjust diet as needed, re-evaluate if LDL increases. - Consider routine follow-up pending neurologist recommendations. * Surgical History: no surgeries * Family History: F ather: . M other: . 1 brother(s) , 1 sister(s) . . Sister- Breast cancer. * Social History: T obacco Use: T obacco Control (Standard) T obacco use: C urrent smoker. P atient indicates no alcohol, tobacco or drug use. * Medications: T akingCalcium 600 MG Tablet 1 tablet with meals Orally Twice a day Sertraline HCl 50 MG Tablet 1 tablet Orally Once a day Aspirin 81 81 MG Tablet Delayed Release 1 tablet Orally Once a day Taking Calcium 600 MG Tablet 1 tablet with meals Orally Twice a day Taking Sertraline HCl 50 MG Tablet 1 tablet Orally Once a day Taking Aspirin 81 81 MG Tablet Delayed Release 1 tablet Orally Once a day DiscontinuedBetamethasone , Notes to Pharmacist: 0.05% lotionSUMAtriptan Succinate 50 MG Tablet 1 tablet as needed, may take second dose at least 2 hours after first dose up to 4 tablets per day as needed Orally Once a day Discontinued Betamethasone , Notes to Pharmacist: 0.05% lotionDiscontinued SUMAtriptan Succinate 50 MG Tablet 1 tablet as needed, may take second dose at least 2 hours after first dose up to 4 tablets per day as needed Orally Once a day * Allergies: S ulfa Antibiotics Objective: * Vitals: B P:116/71mm Hg, HR:62/min, Oxygen sat %:97%, Ht: 71 in, Wt:204lbs, BMI:28.45Index, Wt-k.53 kg, Ht-cm: 180.34 cm, Body Surface Area: 2.15. * Electronic signature of Genaro Garcia on 07/18/2025 at 01:27 PM EST Sign off status: Pending * Provider: Stephania Garcia Date: 0 04/27/2025 Generated for Merced bhatia/Roge/Samir on: 1 09/17/2024 01:27 PM EST
--- NOTE | 2025-07-18 11:43 | A.OFFVIS_ITS ---
Intake Visit Reasons: CTTH/dizziness 2 Months Allergies sulfur dioxide Allergy (Unknown, Verified 05/03/25 07:53) Unknown HPI Comments Details: The patient is a 69-year-old female presenting with chronic tension-type headaches and associated persistent lightheadedness. The patient described the lightheadedness as a constant sensation, sometimes fading into the background. The symptoms persisted after a stroke in her past medical history. During a recent exacerbation, she sought emergency care where a CT scan ruled out acute issues. After the emergency visit, she received meclizine without notable relief. An ENT specialist later ruled out an inner ear cause. Her management of anxiety through sertraline was discussed as a potential cause of the lightheadedness. No significant changes in her condition were linked to stress following her usp, although the medication regimen had varying impacts. [facility] Medical History (Updated 05/10/25 @ 09:31 by Brigitte Gibson MD) Cerebral microvascular disease Chronic tension headache Review of Systems Narrative - Neurological: Reports persistent lightheadedness, denies dizziness. - Psychological: Reports anxiety stabilized, partially due to usp. - Medications: Reports taking sertraline. Physical Exam Neuro Other: Mental Status: Alert and oriented to person, place, and time. Normal attention. Normal spontaneous speech, fluency, and comprehension. No obvious issues with mood and memory. Affect is appropriate. Cranial Nerves: CN II: Visual andrew full to confrontation, visual acuity intact. CN III, IV, : Pupils equal, round, reactive to light and accommodation. Extraocular movements are normal. CN V: Facial sensation is normal. CN VII: Facial movements symmetrical. CN VIII: Hearing intact to bedside conversation is normal. CN IX, X: Palate elevates symmetrically. CN XI: Shoulder shrug and head turn symmetrical. CN XII: Tongue midline without atrophy or fasciculations. Extrapyramidal: Full facial expressions and blinking. No rigidity. Movements are appropriate with no tremor or abnormality. Speech: Normal; no dysarthria or tremor. Assessment & Plan Assessment & Plan (1) Chronic tension headache: Code(s): G44.229 - Chronic tension-type headache, not intractable Category: Medical Qualifiers: Intractability: not intractable Qualified Code(s): G44.229 - Chronic tension-type headache, not intractable (2) Cerebral microvascular disease: Comment: MRI brain WWO at [facility] in 2019: mild to mod MVD. Code(s): I67.89 - Other cerebrovascular disease Category: Medical Plan Impression: 1. Chronic tension-type headaches 2. Anxiety disorder Recommendations: 1. Sertraline 25 mg 1 at bedtime 2. Sumatriptan 50 mg 1 a day as needed Medications: New sertraline 25 mg PO DAILY 90 tabs 1RF Coding Level of Care Code Est Pt Level 2 (04839) Diagnoses Chronic tension-type headache, not intractable G44.229 Intractability: not intractable Cerebral microvascular disease I67.89 Time Spent (min) 20
--- OUTSIDE RECORDS SUMMARY | 2025-07-18 13:28 | XMS_ITS | Encounter Summary ---
Author Organization [facility] Address [address] [place] [address] Care Team Providers Care Security Officers And Guards Name Role Phone Remy Mendoila Primary Care Provider Encounter Details Date Type Department Care Team (Late st Contact Info) Description 07/11/2024 Lab Requisition [facility] - Main Lab [address] [facility] [place] [address] Luis Alberto Phillips MD [address] [facility] [address] [place], [place] [id number] Vitamin D deficiency, unspecified Social History Tobacco [...] LAB CHEMISTRY METHOD 07/11/2024 6:[address] [facility] Blood Venous blood specimen / Unknown 07/11/2024 07/11/2024 5:46 PM EST us Luis Alberto Phillips MD LAB BLOOD ORDERABLES Final Result [facility] [address] [place] [address], documented in this encounter Visit Diagnoses Diagnosis Vitamin D deficiency, unspecified documented in this encounter Care Teams Security Officers And Guards Relationship Specialty Start Date End Date Remy Mendiola PA [address] [id number] PCP - General Primary Care 02/15/25 documented as of this encounter
--- OUTSIDE RECORDS SUMMARY | 2025-07-18 13:28 | XMS_ITS | Clinical Summary ---
Author Organization [address] Address [address] [place] [address] Phone Care Team Providers Care Bird Keeper Name Role Phone Remy Mendiola Primary Care Provider [phone] Social History Tobacco Use Types Packs/Day Years Used Date Smoking Tobacco: Never Assessed Comments Unknown Sex and Gender Information Value Date Recorded Sex Assigned at Not on file Legal Sex Female 2:14 PM EST Gender Identity Not on file Sexual Orientation Not on file Plan of Treatment Health Maintenance Due Date Last Done Comments Breast Cancer Screening 1955 Colorectal Cancer Screening: Colonoscopy 1955 DTaP,Tdap,and Td Vaccines (1 - Tdap) 1974 Pneumococcal Vaccine: 50+ Years (1 of 1 - PCV) 2005 Zoster Vaccines (1 of 2) 2005 Falls Risk Assessment 07/31/2024 Hepatitis C Screening 07/31/2024 Medicare Annual Wellness Visit 07/31/2024 Osteoporosis Screening (Bone Density Screening) 07/31/2024 Social Influencers of Health Screening 07/31/2024 Depression Screening 09/07/2024 COVID-19 Vaccine ( season) 2025 06/12/2024, 09/15/2023, 08/21/2022, Additional history exists Cholesterol Screening (Lipid Panel) 02/15/2030 02/15/2025 RSV Immunization Adult Patients (1 - 1-dose 75+ series) 2030 Influenza Vaccine Completed 06/29/2025, , 08/13/2023, Additional history exists HIB Vaccines Aged Out No longer eligi [...] Procedure Name Priority Date/Time Associated Diagnosis Comments LIPID PANEL WITH REFLEX TO DIRECT LDL Routine 02/15/2025 10:49 AM EDT Screening, heart disease, ischemic Screening for diabetes mellitus Encounter for long-term (current) use of medications Screening for malnutrition from Last 3 Months or Most Recently Relevant to Health Maintenance Results * (ABNORMAL) Lipid panel with reflex to direct LDL (02/15/2025 10:49 AM EDT) Cholesterol 204(H) 0 - 200 mg/dL LAB CHEMISTRY METHOD 02/15/2025 1:35 PM EDT [facility] Triglycerides 138 0 - 150 mg/dL LAB CHEMISTRY METHOD 02/15/2025 1:35 PM EDT [facility] HDL 66 >=40 mg/dL LAB CHEMISTRY METHOD 02/15/2025 1:35 PM EDT [facility] LDL Calculated 110(H) 0 - 100 mg/dL LAB CHEMISTRY METHOD 02/15/2025 1:35 PM [facility] VLDL Cholesterol Gareth 27.6 mg/dL LAB [facility]STR[facility] Non HDL Chol. (LDL+VLDL) 138 <145 mg/dL LAB CHEMISTRY METHOD 02/15/2025 1:35 PM EDT [facility] Chol/HDL Ratio 3.1 0.0 - 4.4 LAB CHEMISTRY METHOD 02/15/2025 1:35 PM EDT [facility] Blood Venous blood specimen / Unknown Venipuncture / Unknown 02/15/2025 10:49 AM EDT 02/15/2025 12:19 PM EDT Remy CABRERA LAB BLOOD ORDERABLES Final Res ult [facility] [address] [place] [id number], from Last 3 Months or Most Recently Relevant to Health Maintenance Insurance MEDICARE [facility] Care Teams Bird Keeper Relationship Specialty Start Date End Date Remy Mendiola PA [address] [place] [id number] PCP - General Primary Care 02/15/25
--- OUTSIDE RECORDS SUMMARY | 2025-07-18 13:28 | XMS_ITS | Patient Health Record ---
Author Organization [facility] [place] Address [address] [place] [address] Care Team Providers Care College Admissions Counselor Name Role Phone Remy Mendiola Unavailable [phone] Migration, Provider Unavailable Unavailable Rita Garcia Unavailable [phone] Allergies Allergen (clinical drug ingredient) Drug/Non Drug [...] Location Date Provider Diagnosis [facility] [place] [address] [place] [address] 01/09/2025 Provider Migration [facility] [place] [address] [place] [address] 01/10/2025 Remy Osminnaomi [facility] [place] [address] [place] [address] 02/15/2025 Remy Marlena [facility] [place] [address] [place] [address] 03/01/2025 Remy Osminnaomi [facility] [place] [address] [place] [address] 04/27/2025 Rita Radha Assessments Encounter Date Diagnosis (ICD Code) Assessment Notes Treatment Notes Treatment Clinical Notes Section Notes 02/15/2025 Pt sees neurology next month. Labs-CBC, CMP/GFR/PSH/T4 /LIPID/URINE/M AG/CRP/B12/VIT D TRIAMVINOLONE CREAM Plan Of Treatment Next Appt Details Provider Name:Rita Garcia, 07/28/2025 10:15:00 AM, [address], [address], [place], [address], [phone] Insurance Providers Payer Name Payer Address Payer Phone Subscriber Number Group Number Insured Name Patient Relationship to Insured Coverage Start Date Coverage End Date A [employer] [address] [place] [phone] [id number] SHEKHAR CALDWELL Self - patient is the insured [facility] [address] [place] [address] [id number] SHEKHAR CALDWELL Self - patient is the insured Medical (General) History Surgical History Surgery Date(Month/Year) no surgeries
== END 2025-07-18 11:48 | disposition home or self-care (01) ==
LOC: HO.HSM 11:15
PROVIDERS: PCP Internal Medicine; Visit Provider Psychiatry & Neurology Neurology
DX: G44.229 Chronic tension-type headache, not intractable (principal); I67.89 Other cerebrovascular disease
CPT/HCPCS: 99212

== ENCOUNTER → 2025-07-18 11:14 | Outpatient (BNVA) | payer MEDICARE, OTHER, SELFPAY | PROVIDERS: PCP Internal Medicine; Visit Provider Psychiatry & Neurology Neurology | DX: G44.229 Chronic tension-type headache, not intractable (principal); I67.89 Other cerebrovascular disease | CPT/HCPCS: 99212 ==